=== PATIENT | female | born 1975 | race Caucasian/White ===

== ENCOUNTER 2018-01-08 11:01 | Emergency (ER) | payer BC ==
[2018-01-08 11:02] VITALS: BMI 38.4
[2018-01-08 11:07] VITALS: RESP 18
[2018-01-08] MEDS ORDERED: Promethazine/Cod 6.25mg-10mg/5ml Syr UD PO STA (12:09)
[2018-01-08] MEDS ORDERED: Promethazine/Cod 6.25mg-10mg/5ml Syr UD ONE (12:25)
--- NOTE | 2018-01-08 12:41 | C.PDOC ---
History Of Present Illness 42 year old female presents to the ER with a complaint of a nonproductive cough for the past 10 days. Patient states she was being treated by her PMD for bronchitis, she was started on prednisone, however, has had no relief. Patient reports yesterday she had a strong coughing fit and felt a "pop" to the left lateral rib area. Since then patient states the pain has worsened with deep inspiration and movement. Denies fever, vomiting, hemoptysis, SOB, or recent travel. Time Seen by Provider: 01/08/18 11:33 Chief Complaint (Nursing): Back Pain History Per: Patient History/Exam Limitations: no limitations Onset/Duration Of Symptoms: Days Current Symptoms Are (Timing): Still Present Quality Of Discomfort: Unable To Describe Previous Symptoms: None Associated Symptoms: None Exacerbating Factor(s): Movement, Other (Inspiration) Recent travel outside of the [place]: No Past Medical History Reviewed: Historical Data, Nursing Documentation, Vital Signs Vital Signs: Last Vital Signs Temp 97.8 F 01/08/18 11:04 Pulse 98 H 01/08/18 11:04 Resp 18 01/08/18 11:04 BP 151/97 H 01/08/18 11:04 Pulse Ox 96 01/08/18 12:48 - Medical History PMH: Bronchitis, COPD, Gastritis Surgical History: Tonsillectomy - [facility] Procedures INJECT/INFUSE NEC (11/04/14) OTHER SKIN & SUBQ I D (11/04/14) Family History: States: Unknown Family Hx - Social History Hx Alcohol Use: No Hx Substance Use: No - Immunization History Hx Tetanus Toxoid Vaccination: No Hx Influenza Vaccination: No Hx Pneumococcal Vaccination: No Review Of Systems Constitutional: Negative for: Fever ENT: Negative for: Nose Congestion, Throat Pain Respiratory: Positive for: Cough. Negative for: Hemoptysis, Sputum Gastrointestinal: Negative for: Vomiting Physical Exam - Physical Exam Appears: Non-toxic Skin: Normal Color, Warm, Dry Head: Atraumatic, Normacephalic Eye(s): bilateral: Normal Inspection Ear(s): Bilateral: Normal Nose: Normal Oral Mucosa: Moist Throat: Normal, No Erythema, No Exudate Neck: Normal, Supple Chest: Symmetrical, Tenderness (Left lateral ribs over 10th and 11th area) Cardiovascular: Rhythm Regular Respiratory: Normal Breath Sounds, No Rales, No Rhonchi, No Wheezing Gastrointestinal/Abdominal: Soft, No Tenderness, No Distention Neurological/Psych: Oriented x3, Normal Speech ED Course And Treatment O2 Sat by Pulse Oximetry: 96 (Room air) Pulse Ox Interpretation: Normal - Radiology CXR: Interpreted by Me, Viewed By Me CXR Interpretation: Yes: Infiltrates (Interstitial), Fracture (Questionable) Medical Decision Making Medical Decision Making: CXR ordered, results showed positive interstitial infiltrates and questionable fracture. Toradol and tramadol administered, patient also started on zithromax. On reevaluation, patient reports improvement of pain, she is resting comfortably in no acute distress; will discharge home with Rx and instructions to follow up with PMD or return if symptoms worsen. Disposition - Disposition Referrals: Merari Ayala DO [Doctor Osteopathy] - Disposition: HOME/ ROUTINE Disposition Time: 12:44 Condition: FAIR Additional Instructions: Follow up with the medical doctor within 1-2 days. Return if worsened. Prescriptions: Azithromycin [Zithromax] 250 mg PO DAILY #6 tab Naproxen [Naprosyn] 500 mg PO BID #20 tab Promethazine/Codeine [Phenergan/Codeine Oral Syrup] 5 ml PO Q8 PRN #50 ml PRN Reason: Cough traMADol [Ultram] 50 mg PO Q6 PRN #20 tab PRN Reason: Pain Instructions: Rib Fractures in Adults Forms: [facility] (Armenian), Work Excuse - Clinical Impression Clinical Impression: Rib fracture, Bronchitis - PA / [employer] / Resident Statement MD/ has reviewed & agrees with the documentation as recorded. - Scribe Statement The provider has reviewed the documentation as recorded by the Scribkhushbu Merino All medical record entries made by the Scribe were at my direction and personally dictated by me. I have reviewed the chart and agree that the record accurately reflects my personal performance of the history, physical exam, medical decision making, and the department course for this patient. I have also personally directed, reviewed, and agree with the discharge instructions and disposition.
[2018-01-08 13:09] VITALS: BP 155/84; PULSE 64; TEMP 98.5
--- NOTE | 2018-01-08 13:09 | RAD ---
PROCEDURE: Radiographs of the Chest and Left Ribs. HISTORY: cough rib injury COMPARISON: None available. TECHNIQUE: Frontal radiograph of the chest and multiple oblique radiographs of the left ribs were obtained. FINDINGS: LEFT RIBS: No fracture or focal lesion visualized. LUNGS: Clear. PLEURA: No pneumothorax or pleural fluid. CARDIOVASCULAR: Normal sized heart. No pulmonary vascular congestion. OTHER FINDINGS: None. IMPRESSION: Unremarkable radiographs of the chest and left ribs. No left rib fracture.
[2018-01-08 13:11] VITALS: O2SAT 96
== END 2018-01-08 13:15 | disposition home or self-care (01) ==
LOC: C.ER 11:01
DX: S22.32XA Fracture of one rib, left side, initial encounter for closed fracture (principal); X58.XXXA Exposure to other specified factors, initial encounter; J40 Bronchitis, not specified as acute or chronic
CPT/HCPCS: 71101; 96372; 99284; J1885

== ENCOUNTER 2018-05-14 21:05 | Emergency (ER) | payer BC ==
[2018-05-14 21:05] VITALS: BMI 38.4
[2018-05-14 21:17] VITALS: TEMP 98.5
[2018-05-14] MEDS ORDERED: Aspirin 325 mg EC Tablets PO STA (21:32)
[2018-05-14 21:49] LABS: BASO % 0.4 % (0.0-2.0); EOS % 1.1 % (0.0-4.0); HEMOGLOBIN 13.2 g/dL (11.0-16.0); LYMPH % 25.7 % (20.0-40.0); MEAN CELL VOLUME 80.5 fL (81.0-99.0); MEAN CORPUSCULAR HEMOGLOBIN 26.1 pg (27.0-31.0); MEAN CORPUSCULAR HGB CONC 32.5 g/dL (33.0-37.0); MONO % 4.1 % (0.0-10.0); NEUT % 68.7 % (50.0-75.0); RBC 5.05 Mil/uL (3.80-5.20); RED CELL DISTRIBUTION WIDTH 14.6 % (11.5-14.5); WHITE BLOOD COUNT 14.1 K/uL (4.8-10.8)
[2018-05-14 21:50] LABS: BASO # 0.1 K/uL (0.0-0.2); EOS # 0.2 K/uL (0.0-0.7); LYMPH # 3.6 K/uL (1.0-4.3); MONO # 0.6 K/uL (0.0-0.8); NEUT # 9.7 K/uL (1.8-7.0); NRBC % 0.1 % (0.0-2.0)
[2018-05-14 21:59] LABS: ALB/GLOB RATIO 1.1 (1.0-2.1); ALBUMIN 3.5 g/dL (3.5-5.0); ALT/SGPT 28 U/L (9-52); AST/SGOT 19 U/L (14-36); BLOOD UREA NITROGEN 10 mg/dL (7-17); CALCIUM 8.4 mg/dl (8.6-10.4); GFR AFRICAN-AMERICAN > 60; GFR NON-AFRICAN AMERICAN > 60
[2018-05-14 22:03] LABS: SQUAMOUS EPITHIAL 12 /hpf (0-5); URINE BACTERIA RARE (<OCC); URINE BILIRUBIN NEGATIVE (NEGATIVE); URINE BLOOD 1+ (NEGATIVE); URINE CLARITY Hazy (Clear); URINE COLOR Yellow (YELLOW); URINE GLUCOSE (UA) 3+ mg/dL (Normal); URINE LEUKOCYTE ESTERASE NEG Leu/uL (Negative); URINE PROTEIN NEGATIVE (NEGATIVE); URINE UROBILINOGEN NORMAL mg/dL (0.2-1.0)
[2018-05-14 22:05] VITALS: BP 154/77; PULSE 82; RESP 17
[2018-05-14 22:07] LABS: D DIMER < 200 ng/mlDDU (0-243); INR 1.1; PARTIAL THROMBOPLASTIN TIME 34 SECONDS (21-34); PROTHROMBIN TIME 12.1 SECONDS (9.7-12.2)
[2018-05-14 22:08] LABS: B-TYPE NATRIURETIC PEPTIDE 36.8 pg/mL (0-450)
[2018-05-14 22:11] LABS: BARBITURATES, UR NEGATIVE (NEGATIVE); BENZODIAZEPINES, UR NEGATIVE (NEGATIVE); OPIATES, UR NEGATIVE (NEGATIVE); PHENCYCLIDINE, UR NEGATIVE (NEGATIVE)
[2018-05-14 22:27] VITALS: O2SAT 99
--- NOTE | 2018-05-14 22:27 | C.PDOC ---
History Of Present Illness 43 y/o female presents to the ED for evaluation of upper chest discomfort since yesterday. On arrival, pain is digitally reproducible. She denies any SOB, palpitations, dizziness, weakness, headaches, or blurred vision. 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 Denies known PMHx of diabetes. Admits she smokes 1-2 PPD due to anxiety, and cannot quit smoking. Patient also reports gaining weight despite low caloric intake. On further discussion, patient also reports PMHx of bilateral knee arthritis, for which she receives regular b/l knee injections. She is also prescribed topical steroids for chronic axillary and groin infections/irritation. Patient has frequent exacerbation of reactive airway disease/bronchitis and is taking chronic PO steroids Time Seen by Provider: 05/14/18 21:24 Chief Complaint (Nursing): Chest Pain History Per: Patient History/Exam Limitations: no limitations Onset/Duration Of Symptoms: Days (x2) Current Symptoms Are (Timing): Still Present Past Medical History Reviewed: Historical Data, Nursing Documentation, Vital Signs Vital Signs: Last Vital Signs Temp 98.5 F 05/14/18 21:13 Pulse 82 05/14/18 22:05 Resp 17 05/14/18 22:05 BP 154/77 H 05/14/18 22:05 Pulse Ox 99 05/14/18 22:47 - Medical History PMH: Arthritis, Bronchitis, COPD, Gastritis Denies: Chronic Kidney Disease Surgical History: Tonsillectomy - [facility] Procedures INJECT/INFUSE NEC (11/04/14) OTHER SKIN & SUBQ I D (11/04/14) Family History: States: Unknown Family Hx - Social History Hx Alcohol Use: No Hx Substance Use: No - Immunization History Hx Tetanus Toxoid Vaccination: No Hx Influenza Vaccination: No Hx Pneumococcal Vaccination: No Review Of Systems Except As Marked, All Systems Reviewed And Found Negative. Constitutional: Positive for: Other (+ significant weight gain when taking steroids, (almost continuously) for various ailments (knees, reactive airway disease, skin conditions) ) Eyes: Negative for: Vision Change Cardiovascular: Positive for: Chest Pain. Negative for: Palpitations Respiratory: Negative for: Shortness of Breath Neurological: Negative for: Weakness, Headache, Dizziness Physical Exam - Physical Exam Appears: No Acute Distress, Other (+ central obesity with small thin legs) Skin: Warm, Dry Head: Atraumatic, Normacephalic Eye(s): bilateral: Normal Inspection, PERRL, EOMI Oral Mucosa: Moist Neck: Normal ROM Chest: Symmetrical, Other (+ Supraclavicular fat pads) Cardiovascular: Rhythm Regular, No Murmur Respiratory: Normal Breath Sounds, No Accessory Muscle Use, No Rhonchi, No Wheezing Gastrointestinal/Abdominal: Soft, No Tenderness, Other (obese abdomen, with extensive vertical purple striae) Back: Other (+ buffalo hump) Extremity: Bilateral: Atraumatic (thin lower extremities), No Pedal Edema, Normal Color And Temperature Pulses: Left Dorsalis Pedis: Normal, Right Dorsalis Pedis: Normal Neurological/Psych: Oriented x3, Normal Speech Gait: Steady ED Course And Treatment - Laboratory Results Result Diagrams: 05/14/18 21:39 05/14/18 21:39 Lab Interpretation: Abnormal (+ glu 287, bnp, trop, d-dimer neg.) ECG: Interpreted By Sd ECG Rhythm: Sinus Rhythm ECG Interpretation: Normal Rate From EC O2 Sat by Pulse Oximetry: 99 (RA) Pulse Ox Interpretation: Normal Progress Note: ice pack to L upper chest, toradol Reevaluation Time: 22:33 Reassessment Condition: Improved Medical Decision Making Medical Decision Making: Costochondritis: L upper chest discomfort digitally and positionally reproducable normal EKG normal d-dimer, trop, bnp Continue ice and motrin as needed Nory's Syndrome: Classic buffalo hump, supraclavicular fat pads, uncontrolled weight gain beyond caloric intake Leukocytosis 14K not L-shifted c/w chronic almost continuous steroid use (skin for rash, knee injections, reactive airway disease due to smoking NO FURTHER STEROID TREATMENTS outpatient: 24 urine cortisol Consider dexamethasone suppression test, ACTH level Diabetes: glu 287 probably related to obesity/Nory Syndrome Start Metformin 1000 mg PO BID with meals Daily BID AC FS's and log book Anxiety/Smoking pt formerly unable to quit smoking despite insight of harm of smoking to lungs 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 Outpatient psych/anxiety meds and therapy to quit smoking Disposition Doctor Will See Patient In The: Office Counseled Patient/Family Regarding: Studies Performed, Diagnosis - Disposition Referrals: [facility] [Outside] [facility] [Outside] [facility] [Outside] Scott Cox MD [Staff Provider] - Merari Ayala DO [Doctor Osteopathy] - Disposition: HOME/ ROUTINE Disposition Time: 22:41 Condition: GOOD Additional Instructions: Costochondritis: L upper chest discomfort digitally and positionally reproducable normal EKG normal d-dimer, trop, bnp Continue ice and motrin as needed Pinecliffe's Syndrome: Classic buffalo hump, supraclavicular fat pads, uncontrolled weight gain beyond caloric intake Leukocytosis 14K not L-shifted c/w chronic almost continuous steroid use (skin for rash, knee injections, reactive airway disease due to smoking NO FURTHER STEROID TREATMENTS of any kind! 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 Consider Sleep Apnea: High risk due to body habitus Call Dr. Cox- Lung/Sleep Specialist Schedule outpatient Sleep Study. Prescriptions: Blood-Glucose Control, Normal [Meter-Check] 1 each MC BID #1 each Lancets/Blood Glucose Strips [Fora [id number] Strp-Lnct] 1 each MC BID #60 combo..pkg MetFORMIN [glucoPHAGE] 1,000 mg PO BID #60 tab Instructions: Type 2 Diabetes, Pinecliffe's Syndrome, Anxiety, Adult (DC), Quitting Smoking, Costochondritis (DC) Forms: [employer] (Setswana) - Clinical Impression Clinical Impression: Chest wall discomfort, Elevated glucose - Scribe Statement The provider has reviewed the documentation as recorded by the Scribe (Amparo Pak) Provider Attestation: All medical record entries made by the Scribe were at my direction and personally dictated by me. I have reviewed the chart and agree that the record accurately reflects my personal performance of the history, physical exam, medical decision making, and the department course for this patient. I have also personally directed, reviewed, and agree with the discharge instructions and disposition.
--- NOTE | 2018-05-15 08:39 | RAD ---
HISTORY: COMPARISON: 01/08/2018 TECHNIQUE: Chest PA and lateral FINDINGS: LINES AND TUBES: None. LUNG AND PLEURA: The lungs are well inflated. There are increased streaky opacities in the lungs. No focal consolidation No pleural effusion or pneumothorax. HEART AND MEDIASTINUM: The heart is not enlarged. The hilar and mediastinal contours are within normal limits. SKELETAL STRUCTURES: The bony structures are within normal limits for the patient's age. VISUALIZED UPPER ABDOMEN: Normal. OTHER FINDINGS: None. IMPRESSION: Increased streaky opacities in the lungs could represent reactive airway disease/ atypical/ viral pneumonitis. No lobar pneumonia.
--- NOTE | 2018-05-16 10:15 | CARD ---
APPROVED REPORT Date of service: 05/14/2018 EKG Measurement Heart [id number] <Conclusion> Normal sinus rhythm Normal ECG
== END 2018-05-14 23:03 | disposition home or self-care (01) ==
LOC: C.ER 21:05
DX: R07.89 Other chest pain (principal); R73.9 Hyperglycemia, unspecified; J44.9 Chronic obstructive pulmonary disease, unspecified; F17.210 Nicotine dependence, cigarettes, uncomplicated
CPT/HCPCS: 71046; 80053; 81001; 83036; 83880; 84484; 85025; 85378; 85610; 85730; 96374; 99285; G0480; J1885

== ENCOUNTER 2018-06-17 16:26 | Emergency (ER) | payer BC ==
[2018-06-17 16:27] VITALS: BMI 38.4
[2018-06-17 16:37] VITALS: BP 133/78; PULSE 108; RESP 18; TEMP 98.4; O2SAT 96
[2018-06-17] MEDS ORDERED: Lidocaine 1% Inj (20ml) INFIL STA (16:46)
[2018-06-17] MEDS ORDERED: Tmp-Smz 800 mg-160 mg DS Tab PO STA (16:46)
[2018-06-17] MEDS ORDERED: Lidocaine 2% MPF (5 ml) Inj ONE (16:54)
[2018-06-17] MEDS ORDERED: Tmp-Smz 800 mg-160 mg DS Tab ONE (16:55)
--- NOTE | 2018-06-17 17:11 | C.PDOC ---
History Of Present Illness 43-year-old female, presents to the emergency department with complaints of an abscess to her left inner thigh ongoing for the past three days. Patient states she has a history of similar, but it usually begins to drain on its own. She denies any fever, nausea/vomiting, or any other associated symptoms. No other complaints at this time. Time Seen by Provider: 06/17/18 16:40 Chief Complaint (Nursing): Abnormal Skin Integrity History Per: Patient History/Exam Limitations: no limitations Onset/Duration Of Symptoms: Days Current Symptoms Are (Timing): Still Present Past Medical History Reviewed: Historical Data, Nursing Documentation, Vital Signs Vital Signs: Last Vital Signs Temp 98.4 F 06/17/18 16:34 Pulse 108 H 06/17/18 16:34 Resp 18 06/17/18 16:34 BP 133/78 06/17/18 16:34 Pulse Ox 96 06/17/18 18:15 - Medical History PMH: Arthritis, Asthma, Bronchitis, COPD, Gastritis Surgical History: Tonsillectomy - [facility] Procedures INJECT/INFUSE NEC (11/04/14) OTHER SKIN & SUBQ I D (11/04/14) Family History: States: No Known Family Hx - Social History Hx Alcohol Use: No Hx Substance Use: No - Immunization History Hx Tetanus Toxoid Vaccination: No Hx Influenza Vaccination: No Hx Pneumococcal Vaccination: No Review Of Systems Constitutional: Negative for: Fever, Chills Gastrointestinal: Negative for: Nausea, Vomiting Skin: Positive for: Other (abscess left inner thigh) Neurological: Negative for: Weakness, Numbness Physical Exam - Physical Exam Appears: Non-toxic, No Acute Distress Skin: Normal Color, Warm, Dry, Other (2x3 fluctuant erythematous, tender mass to left medial thigh) Head: Atraumatic Eye(s): bilateral: Normal Inspection Nose: Normal Oral Mucosa: Moist Lips: Normal Appearing Neck: Normal ROM Chest: Symmetrical Respiratory: No Accessory Muscle Use Extremity: Normal ROM, No Deformity Neurological/Psych: Oriented x3, Normal Speech ED Course And Treatment O2 Sat by Pulse Oximetry: 96 Pulse Ox Interpretation: Normal (RA) - Incision & Drainage Of Abscess Anesthesia: Lidocaine 2% Prep Used: Betadine Procedure: Incised W/Scalpel Blade#: (11), Drained Pus, Irrigated Cavity W/ Saline, Packed W/Gauze (1/2 inch iodoform), Cultures Obtained And Sent To Lab Medical Decision Making Medical Decision Making: Impression: Abscess Plan: * Bactrim * I&D Patient gave verbal consent to I&D of abscess. See procedure note. Patient tolerated well. Dressing applied. Patient instructed on wound care and to return in 2 days for packing removal Disposition Counseled Patient/Family Regarding: Diagnosis, Need For Followup, Rx Given - Disposition Referrals: Merari Ayala DO [Doctor Osteopathy] - Disposition: HOME/ ROUTINE Disposition Time: 17:20 Condition: GOOD Additional Instructions: Keep area clean and dry. Change dressing 1-2 times daily. Return to ER if fever occurs, redness or swelling around wound, pus in the wound. Please follow up with your primary doctor, clinic, or urgent care for packing removal in 2 days. Prescriptions: Cephalexin [cephalexin] 500 mg PO Q12 #14 cap Omeprazole Magnesium [Acid Wire Weaving Loom Setter] 20 mg PO DAILY #30 capsule. Sulfamethoxazole/Trimethoprim [Bactrim DS 800 mg-160 mg] 1 tab PO BID #14 tab Instructions: Abscess Incision and Drainage Forms: [facility] (Citizen Of [place]) - POA Present On Arrival: None - Clinical Impression Clinical Impression: Abscess of left thigh - Scribe Statement The provider has reviewed the documentation as recorded by the Scribe (Claudia Torres) All medical record entries made by the Scribe were at my direction and personally dictated by me. I have reviewed the chart and agree that the record accurately reflects my personal performance of the history, physical exam, medical decision making, and the department course for this patient. I have also personally directed, reviewed, and agree with the discharge instructions and disposition.
== END 2018-06-17 17:31 | disposition home or self-care (01) ==
LOC: C.ER 16:26
DX: L02.416 Cutaneous abscess of left lower limb (principal)